=== PATIENT | female | born 1965 | race Caucasian/White ===

== ENCOUNTER 2023-02-08 23:14 | Emergency (ER) | payer MEDICAID, OTHER ==
[~2023-02-08] VITALS: Ht 157.5 cm; Wt 77.1 kg
[2023-02-08 23:18] VITALS: BP 146/84
== END 2023-02-09 01:26 | disposition left against medical advice (07) ==
LOC: ER 23:24
DX: Z53.21 Procedure and treatment not carried out due to patient leaving prior to being seen by health care provider (principal)
CPT/HCPCS: 99281; Z7610